=== PATIENT | male | born 1990 | race Caucasian/White ===

== ENCOUNTER 2019-08-18 10:37 | Day surgery (SDC) | payer OTHER ==
[~2019-08-18] VITALS: Ht 188 cm; Wt 69.8 kg
[~2019-08-18 10:37] MED LIST: IBUP800 PO
--- NOTE | 2019-08-18 13:14 | NUR ---
08/18/19 1314 Jamilah Saavedra PT. VERBALIZES ABLE TO FEEL TOUCH TO TOES ON RIGHT FOOT. PT. VERBALIZES HAVING SOME PAIN. STATES "NOT TOO BAD." PT. WITH GOOD CAP REFILL TO RIGHT TOES.
--- NOTE | 2019-08-18 13:43 | NUR ---
08/18/19 1343 Yudith Gaitan PT INTO RECLINER. SPOUSE AND DAUGHTERS AT BEDSIDE. PT TOLERATING PO INTAKE WELL. PT DENIES NAUSEA AND C/O 6/10 PAIN IN RIGHT KNEE. WILL MEDICATE WITH PO PAIN MEDS ONCE PT EATS CRACKERS. ICE AND ELEVATION IMPLEMENTED.
== END 2019-08-18 14:20 | disposition home or self-care (01) ==
LOC: ORSCSDS 10:37
PROVIDERS: Podiatrist Foot & Ankle Surgery
PROC: 0QSQ04Z Reposition Right Toe Phalanx with Internal Fixation Device, Open Approach (ICD-10-PCS; principal; 2019-08-18 12:00)
PROC: 0QSN04Z Reposition Right Metatarsal with Internal Fixation Device, Open Approach (ICD-10-PCS; principal; 2019-08-18 12:00)
DX: M20.11 Hallux valgus (acquired), right foot (principal); F17.210 Nicotine dependence, cigarettes, uncomplicated
CPT/HCPCS: A9270-GY; C1713; C1769; J0171; J0690; J1885; J2250; J2370; J2704; J3010; J7120

== ENCOUNTER 2023-10-01 12:06 | Day surgery (SDC) | payer BC ==
[~2023-10-01] VITALS: Ht 188 cm; Wt 69.7 kg
[2023-10-01] MEDS ORDERED: ASPI325 PO (12:32)
--- NOTE | 2023-10-01 15:23 | NUR ---
10/01/23 1523 Chaya Boateng 20ML OF ROPIVACAINE 0.5% MIXED AND VERIFIED WITH 0.1ML OF EPI (1MG/ML) TO MAKE ROPIVACAINE 0.5% WITH EPI 1:200,000 FOR INJECTION AT [facility] BY DR BRIONES.
[2023-10-01 16:48] VITALS: BP 102/71
== END 2023-10-01 16:36 | disposition home or self-care (01) ==
LOC: ORSCSDS 12:06
PROVIDERS: Podiatrist Foot & Ankle Surgery
PROC: 0SPM04Z Removal of Internal Fixation Device from Right Metatarsal-Phalangeal Joint, Open Approach (ICD-10-PCS; principal; 2023-10-01 14:00)
DX: T84.84XA Pain due to internal orthopedic prosthetic devices, implants and grafts, initial encounter (principal); Z79.82 Long term (current) use of aspirin
CPT/HCPCS: J0171; J0690; J2250; J2704; J2795; J3010; J7120

== ENCOUNTER → 2025-01-03 | Outpatient (CLI) | payer BC ==
[~2025-01-03] MED LIST changes: +ASPI325 PO
[2025-01-03 10:45] LABS: BASOPHILS ABSOLUTE AUTO 0.08 K/mm3 (0.00-0.23); BASOPHILS PERCENT AUTO 1 % (0-2); EOSINOPHILS ABSOLUTE AUTO 0.12 K/mm3 (0.00-0.68); EOSINOPHILS PERCENT AUTO 2 % (0-6); Hematocrit 42.9 % (37.0-53.0); Hemoglobin 14.6 g/dL (13.5-17.5); IMMATURE GRAN ABSOLUTE AUTO 0.02 K/mm3 (0.00-0.10); IMMATURE GRAN PERCENT AUTO 0 % (0-1); LYMPHOCYTES ABSOLUTE AUTO 1.91 K/mm3 (0.84-5.20); LYMPHOCYTES PERCENT AUTO 23 % (21-46); MONOCYTES ABSOLUTE AUTO 0.67 K/mm3 (0.16-1.47); MONOCYTES PERCENT AUTO 8 % (4-13); Mean Corpuscular HGB 28.3 pg (26.0-34.0); Mean Corpuscular Volume 83 fL (80-100); Mean Platelet Volume 9.8 fL (9.1-12.4); NEUTROPHILS ABSOLUTE AUTO 5.45 K/mm3 (1.96-9.15); NEUTROPHILS PERCENT AUTO 66 % (41-73); Platelet Count 212 K/mm3 (150-400); RDW Coefficient Variation 12.7 % (11.7-14.2); RDW Standard Deviation 38.5 fL (35.1-46.3); Red Blood Cell Count 5.16 M/mm3 (4.30-5.90); White Blood Cell Count 8.25 K/mm3 (4.00-11.30)
[2025-01-03 11:02] LABS: Albumin, Blood 4.3 g/dL (3.4-5.0); Albumin/Globulin Ratio 1.4 (0.8-1.8); Bilirubin, Total 0.6 mg/dL (0.1-1.0); Bun/Creatinine Ratio 14.4 (12.0-20.0); Creatinine, Blood 1.11 mg/dL (0.60-1.20); Potassium, Blood 4.2 mmol/L (3.5-5.5); Thyroid Stimulating Hormone 0.685 uIU/mL (0.360-4.800); Total Protein, Blood 7.3 g/dL (6.4-8.2)
== END | disposition home or self-care (01) ==
LOC: LAB 10:37 → LAB SHORT 10:37
PROVIDERS: Chiropractor
DX: R00.2 Palpitations (principal)
CPT/HCPCS: 80053; 84443; 85025